=== PATIENT | male | born 1985 | race American Indian/Alaskan Native ===

== ENCOUNTER 2018-01-20 16:50 | Emergency (ER) | payer SELFPAY ==
[2018-01-20 17:17] VITALS: BP 131/89
--- NOTE | 2018-01-20 19:32 | Emergency Department Report ---
ED Anxiety HPI - General Chief Complaint: Anxiety Stated Complaint: ANXIETY Time Seen by Provider: 01/20/18 19:23 Source: patient Mode of arrival: Ambulatory - History of Present Illness MD Complaint: anxiety -: Gradual, month(s) Place: home Previous History of Same: Yes Severity: mild Quality: intermittant Provoking factors: emotional stress, work/job stress, recent /illness of f Improves With: nothing Associated symptoms: denies other symptoms. denies: chest pain, shortness of breath, palpitations, diaphoresis, confusion, cough, fever/chills, headaches, anorexia, malaise, nausea/vomiting, rash, seizure, syncope, weakness - Related Data Home Medications: Previous Rx's Medication Instructions Recorded Last Taken Type hydrOXYzine PAMOATE [Vistaril] 50 mg PO Q6HR PRN #12 capsule 01/20/18 Unknown Rx Allergies/Adverse Reactions: Allergies Allergy/AdvReac Type Severity Reaction Status Date / Time No Known Allergies Allergy Unverified 01/20/18 17:12 ED Review of Systems ROS: Stated complaint: ANXIETY Other details as noted in HPI ED Past Medical Hx - Past Medical History Previous Medical History?: Yes Hx Hypertension: Yes Hx Psychiatric Treatment: Yes (Anxiety) - Surgical History Past Surgical History?: No - Social History Smoking Status: Former Smoker Substance Use Type: None - Medications Home Medications: Home Medications Medication Instructions Recorded Confirmed Last Taken Type hydrOXYzine PAMOATE [Vistaril] 50 mg PO Q6HR PRN #12 capsule 01/20/18 Unknown Rx ED Physical Exam - General Limitations: No Limitations General appearance: alert - Head Head exam: Present: atraumatic - Eye Eye exam: Present: PERRL Pupils: Present: normal accommodation - ENT ENT exam: Present: mucous membranes moist - Neck Neck exam: Present: normal inspection - Respiratory Respiratory exam: Present: normal lung sounds bilaterally - Cardiovascular Cardiovascular Exam: Present: regular rate, normal rhythm - GI/Abdominal GI/Abdominal exam: Present: soft - Rectal Rectal exam: Present: deferred - Extremities Exam Extremities exam: Present: normal inspection, full ROM - Back Exam Back exam: Present: normal inspection, full ROM - Neurological Exam Neurological exam: Present: alert, oriented X3, CN II-XII intact, normal gait - Psychiatric Psychiatric exam: Present: normal affect, normal mood - Skin Skin exam: Present: warm, dry, intact, normal color. Absent: rash ED Course Vital Signs 01/20/18 17:12 Temperature 98.4 F Pulse Rate 16 L Respiratory 18 Rate Blood Pressure 131/89 O2 Sat by Pulse 98 Oximetry ED Medical Decision Making - Medical Decision Making CARING FOR MOM WHO HAD 2 STROKES AND BROTHER WHO IS SCIZOPHRENIA NO SI NO HI CALM NOW - Differential Diagnosis HX ANXIETY Critical care attestation.: If time is entered above; I have spent that time in minutes in the direct care of this critically ill patient, excluding procedure time. ED Disposition Clinical Impression: Anxiety Disposition: DC-01 TO HOME OR SELFCARE Is pt being admited?: No Does the pt Need Aspirin: No Condition: Stable Instructions: Anxiety (ED) Additional Instructions: NO CAFFEINE HYDRATE WELL MAKE TIME FOR YOU ACTIVITY TOLERATED EXERCISE DAILY AVOID ALCOHOL, DRUGS OR CIG FOLLOW UP WITH PCP GIVEN TODAY. SEE BELOW Prescriptions: hydrOXYzine PAMOATE [Vistaril] 50 mg PO Q6HR PRN #12 capsule PRN Reason: Anxiety Referrals: PRIMARY CAREMD [Primary Care Provider] - 3-5 Days VIOLET SHELTON MD [Staff Physician] - 3-5 Days Time of Disposition: 19:33
== END 2018-01-20 19:40 | disposition home or self-care (01) ==
LOC: ED 16:50
DX: F41.9 Anxiety disorder, unspecified (principal); I10 Essential (primary) hypertension; Z87.891 Personal history of nicotine dependence
CPT/HCPCS: 99282